=== PATIENT | male | born 1960 | race Caucasian/White ===

== ENCOUNTER 2024-07-19 09:51 | Day surgery (SDC) | payer BC ==
[2024-07-17 13:44] VITALS: BMI 30.2
[2024-07-19] MEDS ORDERED: PROPOFOL 20 ML ONE (11:00)
[2024-07-19] MEDS ORDERED: fentaNYL 50 mcg/mL 1 mL Vial ONE ×2 (11:00→12:39)
[2024-07-19] MEDS ORDERED: Lidocaine 1% PF 5 ML VIAL ONE (11:00)
[2024-07-19] MEDS ORDERED: Bupivacaine PF 0.5% 30 ML VIAL ONE (11:12)
[2024-07-19] MEDS ORDERED: CEFAZOLIN 2 GM VIAL ONE (11:30)
[2024-07-19] MEDS ORDERED: HYDROcodone/Acetaminophen 5/325 mg Tablet ONE (13:34)
== END 2024-07-19 14:10 | disposition home or self-care (01) ==
LOC: CSHSDC 09:51
PROVIDERS: ATTEND Podiatrist Foot & Ankle Surgery
PROC: 0LQT0ZZ Repair Left Ankle Tendon, Open Approach (ICD-10-PCS; principal; 2024-07-19)
DX: S86.312A Strain of muscle(s) and tendon(s) of peroneal muscle group at lower leg level, left leg, initial encounter (principal); M76.72 Peroneal tendinitis, left leg; E78.5 Hyperlipidemia, unspecified; Z79.899 Other long term (current) drug therapy; Z98.890 Other specified postprocedural states; X58.XXXA Exposure to other specified factors, initial encounter
CPT/HCPCS: J0665; J2704; J3010